=== PATIENT | male | born 1965 | race Caucasian/White ===

== ENCOUNTER 2019-12-25 09:40 | Emergency (ER) | payer MEDICARE, SELFPAY ==
--- NOTE | ~2019-12-25 | XR_ITS ---
EXAMINATION: XR hip LT min 3V w AP pelvis EXAM DATE: 12/25/2019 10:24 INDICATION: No known recent injury provided at this time. Pain of the left hip, pelvis. TECHNIQUE: Left hip frontal, crosstable lateral and 'frog-leg' projections for interpretation. Fronta l projection pelvis. Comparison is made to prior examination from 07/31/2019. FINDINGS: Smooth left hip femoral head contour, no radiographic evidence of avascular necrosis. Ther e is mild left hip primary osteoarthritis. There is total right hip arthroplasty, intact. There are no acute fractures or dislocations identified. There is no subcutaneous gas. The soft tissue is unr emarkable. IMPRESSION: Mild left hip osteoarthritis, unchanged. Reviewed, dictated and finalized at location A. E CUSTODIAN
[2019-12-25 10:00] VITALS: BP 139/97; PULSE 60; RESP 16; TEMP 36.9; O2SAT 98
--- NOTE | 2019-12-25 10:01 | ED.GENADULT ---
HPI - General Adult General Chief complaint: Extremity Injury, Lower <JORDI Garcia Last Filed: 12/25/19 11:56> Stated complaint: L HIP PAIN <JORDI Garcia Last Filed: 12/25/19 11:56> Time Seen by Provider: 12/25/19 09:42 <JORDI Garcia Last Filed: 12/25/19 11:56> Source: patient <JORDI Garcia Last Filed: 12/25/19 11:56> Mode of arrival: ambulatory <JORDI Garcia Last Filed: 12/25/19 11:56> Limitations: no limitations <JORDI Garcia Last Filed: 12/25/19 11:56> History of Present Illness HPI narrative: Patient is a 54-year-old male who presents with 1 day duration of left hip pain noting that he was standing when he felt a pop in the left hip patient has since had pain down the hip with numbness to the level of the foot pain is worse with any activity movement or ambulation. Patient is followed by Dr. Moore orthopedic surgery and needs a hip replacement per patient. Patient presents per private vehicle in no distress. Patient notes he has not taken anything for his symptoms contacted his orthopedist he cannot see him until Tuesday. <JORDI Garcia Last Filed: 12/25/19 11:56> Related Data Home medications: Home Medications Medication Instructions Recorded Confirmed amlodipine 12/25/19 metoprolol tartrate 12/25/19 pioglitazone mg 12/25/19 rosuvastatin mg 12/25/19 <JORDI Garcia Last Filed: 12/25/19 11:56> Allergies/adverse reactions: Allergies Allergy/AdvReac Type Severity Reaction Status Date / Time buspirone Allergy Mild anxiety to Verified 07/29/16 08:51 be worse canagliflozin Allergy Mild redness, Verified 10/04/16 09:52 SOB, blurry vision hydrochlorothiazide Allergy Mild blurry Verified 07/29/16 08:48 vision metformin Allergy Mild redness, Verified 10/04/16 09:52 SOB, blurry vision amlodipine Allergy Unknown Unknown Verified 12/25/19 10:39 benazepril Allergy Unknown Unknown Verified 12/25/19 10:39 iodine Allergy Unknown Unknown Verified 12/25/19 10:39 latex Allergy Unknown MAKES Verified 05/03/17 14:05 SKIN RAW losartan Allergy Unknown Blurred Verified 07/08/16 09:08 Vision Contrast Media Allergy Unknown PURPLE Uncoded 05/03/17 14:05 RASH <Gabino Claire PA-C - Last Filed: 12/25/19 11:56> Review of Systems Review of Systems: Narrative: CONSTITUTIONAL: Denies fever, chills, or sweats. GASTROINTESTINAL: Denies abdominal pain, nausea, vomiting SKIN: Denies rash or itching. MUSCULOSKELETAL: Denies back pain NEUROLOGIC: Denies headache, or weakness. <Gabino Claire PA-C - Last Filed: 12/25/19 11:56> [facility] Past Medical History Medical History: Medical History (Updated 12/25/19 @ 11:55 by Gabino Claire PA-C) Obesity <Gabino Claire PA-C - Last Filed: 12/25/19 11:56> Surgical History Surgical History: Surgical History History of orthopedic surgery <Gabino Claire PA-C - Last Filed: 12/25/19 11:56> Family History Family History: Family History (Updated 11/03/18 @ 10:02 by DOCTOR UNKNOWN) Father Family history of premature coronary heart disease Hypertension Family history of diabetes mellitus in first degree relative Grandparent Family history of malignant neoplasm of breast Other Asthma Cerebrovascular accident Depression Diabetes mellitus Family history of alcoholism Family history of arthritis Family history of blood dyscrasia Family history of chronic obstructive pulmonary disease Family history of congestive heart failure Family history of lung disease Family history of migraine headaches Family history of obesity Family history of thyroid disease <Gabino Claire PA-C - Last Filed: 12/25/19 11:56> Social History Social History: Social History (Reviewed 0
[2019-12-25] MEDS: DIAZEPAM 5 MG TABLET PO (10:50)
[2019-12-25] MEDS: KETOROLAC (*BKC) 60 MG/2 ML VIAL IM (10:51)
== END 2019-12-25 12:50 | disposition home or self-care (01) ==
PROVIDERS: Emergency Provider Emergency Medicine; PCP Family Medicine
DX: M79.605 Pain in left leg (principal)
CPT/HCPCS: 73502; 96372; 99283; A9270; J1885

== ENCOUNTER → 2020-01-09 16:07 | Outpatient (CLI) | payer MEDICARE, SELFPAY ==
--- NOTE | ~2020-01-09 | MR_ITS ---
EXAMINATION: MR hip LT wo con DATE: 01/09/2020 17:22 INDICATION: Left hip pain TECHNIQUE: Magnetic resonance imaging (MRI) of the left hip was performed without intravenous contra st. Sequences included full-field axial PD-weighted FS FSE and T1-weighted FSE, coronal of the pelvis with PD-weighted FS FSE, small field of view of the left hip with axial PD-weighted FS FSE, sagitta l PD-weighted FS FSE and coronal PD weighted FS FSE. Additional radial T1-weighted FGR oriented ortho gonal to the acetabular rim were obtained for evaluation of the labrum. COMPARISON: None FINDINGS: Bones/labrum/cartilage: Metallic magnetic field artifact in the sensitivity of a right total hip arthroplasty. Otherwise norm al bone marrow signal throughout. No fracture, avascular necrosis or pathologic marrow replacing proc ess. There is decreased anterosuperior left femoral head neck offset which could predispose towards c am-type femoral acetabular impingement. Mild osteoarthritis at the left hip with partial thickness ca rtilage loss resulting in anterior and posterior predominant mild nonuniform joint space narrowing. T here is delamination at the chondral labral junction at the 12:00 position of the acetabulum with dif fuse degenerative tearing of the left acetabular labrum most severe at the 11:30-12:30 position where it appears thickened with diffuse increased signal. No degenerative subarticular changes. Moderate t horacic spondylosis. Fluid: Visualized amount of fluid in the left hip joint. No right hip joint effusion suspected although asse ssment is somewhat limited by the magnetic field artifact. No bursitis or other abnormal fluid collec tions. Soft tissues: Normal and symmetric muscle bulk and signal in the pelvis and visualized proximal thighs. The iliopso as and gluteal tendons are normal. Mild tendinopathy without discrete tear at the ischial tuberosity origins of the bilateral proximal hamstring tendons. Prostatomegaly measuring 4.9 x 3.2 cm. Normal ap pendix. Limited evaluation of visceral organs of the pelvis is unremarkable. No pathologically enlar ged pelvic/inguinal lymphadenopathy. Small fat-containing right inguinal hernia. IMPRESSION: 1. Mild left hip osteoarthritis with diffuse labral degeneration. 2. Mild tendinopathy at the bilateral proximal hamstring tendons. 3. Right total hip arthroplasty. 4. Moderate thoracic spondylosis. 5. Small right fat-containing inguinal hernia. 6. Prostatomegaly. Reviewed, dictated and finalized at location A. IT[employer]IVE FI[employer] PROJECT MANAGER
== END ==
PROVIDERS: Visit Provider Orthopaedic Surgery
DX: M25.552 Pain in left hip (principal)
CPT/HCPCS: 73721